=== PATIENT | female | born 1990 | race Caucasian/White ===

== ENCOUNTER 2025-03-09 09:17 | Outpatient (CLI) | payer OTHER, SELFPAY ==
--- OUTSIDE RECORDS SUMMARY | 2025-03-09 09:37 | XMS_ITS | Encounter Summary ---
Author Organization [facility] Address [address] [place] [address] Phone Care Team Providers Care Lining Stuffer Name Role Phone Esau Morgan MD Primary Care Provider [phone] Agapito Douglas MD Unavailable [phone] Reason for Visit * Reason Comments Abdominal Pain Encounter Details Date Type Department Care Team (Late st Contact Info) Description 03/08/2025 11:01 AM CDT - 03/08/2025 2:59 PM CDT Emergency [facility] Emergency [address] [place] [address] Michi Norman MD [address] [place] [address] Bleeding in early Discharge Disposition: Discharged to home or Selfcare Social History Tobacco Use Types Packs/Day Years Used Date Smoking Tobacco: Former Cigarettes Q uit: 11/30/2011 Smokeless Tobacco: Never Alcohol Use Standard Drinks/Week Comments Yes 0 (1 standard drink = 0.6 oz pur e alcohol) once and awhile [facility] Utilities Answer Date Recorded In the past 12 months has th e electric, gas, oil, or water company threatened to shut off services in your home? No 12/15/2024 Social Connection and Isolat ion Panel [NHANES] Answer Date Recorded In a typical week, how many times do you talk on the phone with family, friends, or neighbors? More than three times a week 12/15/2024 How often do you get togethe r with friends or relatives? Once a week 12/15/2024 Attends Mormonism Services Not on file 12/15 Active Member of Clubs or Organizations Not on f ile 12/15/2024 Attends Club or Organization Meetings Not on gill e 12/15/2024 Marital Status Not on file 12/15/2024 AUDIT-C Answer Date Recorded Q1: How often do you have a drink containing alc ohol? Monthly or less 12/15/2024 Q2: How many drinks containi ng alcohol do you have on a typical day when you are drinking? 5 or 6 12/15/2024 Q3: How often do you have si x or more drinks on one occasion? Monthly 12/15/2024 Overall Financial Resource Strain (CARDIA) Answe r Date Recorded How hard is it for you to pa y for the very basics like food, housing, medical care, and heating? Not hard at all 12/15/2024 PHQ-2 Answer Date Recorded Total Score - Questions 1-9 0 11/30 [facility] - Occupational Stress Questionnaire Answer Date Recorded Do you feel stress - tense, restless, nervous, or anxious, or unable to sleep at night because your mind is troubled all the time - these days? Very much 12/15/2024 Exercise Vital Sign Answer Date Recorde d On average, how many days pe r week do you engage in moderate to strenuous exercise (like a brisk walk)? 4 days 12/15/2024 On average, how many minutes do you engage in exercise at this level? 60 min 12/15/2024 Hunger Vital Sign Answer Date Recorded Within the past 12 months, y ou worried that your food would run out before you got the money to buy more. Never true 12/15/19 25 Within the past 12 months, t he food you bought just didn't last and you didn't have money to get more. Never true 12/15/2024 PRAPARE - Transportation Answer Date Re corded In the past 12 months, has l ack of transportation kept you from medical appointments or from getting medications? No 11/30 In the past 12 months, has l ack of transportation kept you from meetings, work, or from getting things needed for daily living? No 12/15/2024 Housing Stability Vital Sign Answer Bradley e Recorded In the last 12 months, was t here a time when you were not able to pay the mortgage or rent on time? No 12/15/2024 In the past 12 months, how m any times have you moved where you were living? 0 12/15/2024 At any time in the past 12 m [facility], were you homeless or living in a fdc (including now)? No 12/15/2024 Education Answer Date Recorded What is the highest level of school you have completed or the highest degree you have received? Associate degree: occupational, technical, or vocational program 07/28/2023 Sexually Active Control Partners Comments Yes I.U.D. Male Estimated Date of Delivery Comme nts Yes 11/17/2025 Sex and Gender Information Value Date Recorded Sex Assigned at Not on file Legal Sex Female 9:43 PM CDT Gender Identity Not on file Sexual Orientation Not on file documented as of this encounter Last Filed Vital Signs Vital Sign Reading Time Taken Comments Blood Pressure 123/57 03/08/2025 11:10 AM CDT Pulse 81 03/08/2025 11:10 AM CDT Temperature 36.8 C (98.2 F) 03/08/2025 11:10 AM CDT Respiratory Rate 16 03/08/2025 11:10 AM CDT Oxygen Saturation 100% 03/08/2025 11:10 AM CDT Inhaled Oxygen Concentration - - Weight 68.5 kg (151 lb) 03/08/2025 11:10 AM CDT Height 157.5 cm (5' 2 ) 03/08/2025 11:10 AM CDT Body Mass Index 27.62 03/08/2025 11:10 AM CDT documented in this encounter Discharge Instructions * Discharge Instructions* Michi Norman MD - 03/08/2025 2:40 PM CDT As we discussed, your ultrasound did not reveal an obvious . While this could be consistent with a very early , it is possible that you may have had a miscarriage or that the is not in the normal location. It is extremely important that you are followed very closely. Youwill need to be rechecked in the 48 hours with repeat blood work so that the trend of your hormone can be followed. This can be done in your SUPERVISOR GLUING's office, our on-call SUPERVISOR GLUING's office if available (information is included in this paperwork), or by returning to this emergency department in 48 hours. It is very important that you follow-up as failure to diagnose a that is in the wrong location (ectopic ) can be deadly. Please also follow-up with your primary doctor within the next 3 days. Please come back immediately if you have worsening bleeding, lightheadedness, severe abdominal or pelvic pain, fever, weakness, or anything else concerning to you. documented in this encounter Medications at Time of Discharge buPROPion (WELLBUTRIN) 150 MG XL tabletIndications :Anxiety Take 1 Tablet by mouth every morning. 90 Tablet 03/06/2025 documented as of this encounter ED Notes * Emmy Shoemaker RN - 03/08/2025 2:56 PM CDT Patient discharged. Discharge instructions and patient educational material reviewed with patient; questions and concerns addressed; patient verbalizes understanding, using teach back. Patient was given 0 prescriptions. Patient discharged per ambulatory mode with self as responsible constitution party. SL D/C'ed with Ad cath intact. Pt declined discharge vital. * Emmy Shoemaker RN - 03/08/2025 2:45 PM CDT Provider at bedside to evaluate pt. * Emmy Shoemaker RN - 03/08/2025 2:30 PM CDT Patient is resting in room with call light at bedside. Patient informed about wait time and verbalizes understanding. Patient denies needs at this time and verbalizes understanding that RN will complete hourly rounding. * Emmy Shoemaker RN - 03/08/2025 1:30 PM CDT Pt resting on stretcher and verbalizes understanding that we are waiting on her US to result. Pt requesting water, but explained that US results must be obtained first. Pt verbalizes understanding. * Emmy Shoemaker RN - 03/08/2025 12:45 PM CDT Pt in US. * Emmy Shoemaker RN - 03/08/2025 11:45 AM CDT IV access established with 20G in the left AC. Urine sample collected. Pt resting on stretcher at this time. No distress noted and call light within reach. * Michi Norman MD - 03/08/2025 11:19 AM CDT Chief Complaint Patient presents with Abdominal Pain This is a 34-year-old female, , currently with a LMP of approximately 1 month ago, comes in due to pain in the context of her . Patient states that she is coming in with left lower quadrant abdominal pain. States that she has had this pain intermittently for the past several months. She had a CT of the beginning of this year which was unremarkable. States that she has been keeping an eye on it with her primary doctor. She recently had a positive test and her paingot worse so she came in to be evaluated out of concern for possible ectopic . She denies any nausea or vomiting. No fevers or chills. No blood in her stool. No vaginal bleeding. She denies any issues with her previous or delivery. Abdominal Pain No current facility-administered medications for this encounter. Current Outpatient Medications Medication Sig Dispense Refill buPROPion (WELLBUTRIN) 150 MG XL tablet Take 1 Tablet by mouth every morning. 90 Tablet 0 No Known Allergies No past medical history on file. Past Surgical History: Procedure Laterality Date APPENDECTOMY LYMPHADENECTOMY 1992 Social History Socioeconomic History Marital status: Spouse name: Not on file Number of children: Not on file Years of education: Not on file Highest education level: Associate degree: occupational, technical, or vocational program Occupational History Not on file Tobacco Use Smoking status: Former Current packs/day: 0.00 Types: Cigarettes Quit date: 11/30/2011 Years since quittin.2 Smokeless tobacco: Never Vaping Use Vaping status: Never Used Substance and Sexual Activity Alcohol use: Yes Comment: once and awhile Drug use: No Sexual activity: Yes Partners: Male control/protection: I.U.D. Other Topics Concern Not on file Social History Narrative Not on file Social Drivers of Health Financial Resource Needs: Low Risk (12/15/2024) Overall Financial Resource Strain (CARDIA) Difficulty of Paying Living Expenses: Not hard at all Food Insecurity Needs: No Food Insecurity (12/15/2024) Hunger Vital Sign Worried About Running Out of Food in the Last Year: Never true Ran Out of Food in the Last Year: Never true Transportation Needs: No Transportation Needs (12/15/2024) PRAPARE - Transportation Lack of Transportation (Medical): No Lack of Transportation (Non-Medical): No Physical Activity: Sufficiently Active (12/15/2024) Exercise Vital Sign Days of Exercise per Week: 4 days Minutes of Exercise per Session: 60 min Stress: Stress Concern Present (12/15/2024) [facility] - Occupational Stress Questionnaire Feeling of Stress : Very much Social Integration: Unknown (12/15/2024) Social Connection and Isolation Panel [NHANES] Frequency of Communication with Friends and Family: More than three times a week Frequency of Social Gatherings with Friends and Family: Once a week Attends Mormonism Services: Not on file Active Member of Clubs or Organizations: Not on file Attends Club or Organization Meetings: Not on file Marital Status: Not on file Personal Safety: Low Risk (03/08/2025) Personal Safety Feels Unsafe at Home or Work/School: no Feels Threatened by Someone: no Does Anyone Try to Keep You From Having Contact with Others or Doing Things Outside Your Home?: no Physical Signs of Abuse Present: no Housing Stability: Low Risk (12/15/2024) Housing Stability Vital Sign Unable to Pay for Housing in the Last Year: No Number of Times Moved in the Last Year: 0 Homeless in the Last Year: No BP 123/57 Pulse 81 Temp 98.2 ??F (36.8 ??C) (Tympanic) Resp 16 Ht 5' 2 (1.575 m) Wt 151 lb (68.5 kg) LMP 02/09/2025 (Exact Date) SpO2 100% BMI 27.62 kg/m?? Review of Systems Physical Exam Vitals and nursing note reviewed. Constitutional: Comments: Well-appearing young female in no acute distress. HENT: Head: Normocephalic and atraumatic. Mouth/Throat: Mouth: Mucous membranes are moist. Pharynx: Oropharynx is clear. Eyes: Extraocular Movements: Extraocular movements intact. Pupils: Pupils are equal, round, and reactive to light. Cardiovascular: Rate and Rhythm: Normal rate and regular rhythm. Pulmonary: Effort: Pulmonary effort is normal. Breath sounds: Normal breath sounds. Abdominal: General: Abdomen is flat. Bowel sounds are normal. There is no distension. Palpations: Abdomen is soft. Tenderness: There is no abdominal tenderness. Negative signs include Thao's sign and McBurney's sign. Hernia: No hernia is present. Skin: General: Skin is warm and dry. Capillary Refill: Capillary refill takes less than 2 seconds. Neurological: General: No focal deficit present. Mental Status: She is oriented to person, place, and time. Cranial Nerves: No cranial nerve deficit. Motor: No weakness. Psychiatric: Mood and Affect: Mood normal. Procedures Recent Results (from the past 24 hours) POCT Urine HCG () Collection Time: 03/08/25 11:43 AM Result Value Ref Range POC URINE Positive POC URINE CONTROL [facility] ABO & RH TYPING Collection Time: 03/08/25 11:45 AM Result Value Ref Range ABO TYPING A RH Positive CBC with Auto Differential Collection Time: 03/08/25 11:45 AM Result Value Ref Range WBC 7.56 4.00 - 12.00 10(3)/mcL RBC 4.15 3.80 - 5.30 10(6)/mcL HEMOGLOBIN (HGB) 12.5 12.0 - 15.8 g/dL HEMATOCRIT (HCT) 37.7 36.0 - 47.0 % MCV 90.8 82.0 - 96.0 fL MCH 30.1 26.0 - 34.0 pg MCHC 33.2 31.0 - 36.0 g/dL PLATELET COUNT 296 140 - 440 10(3)/mcL RDW 13.0 11.8 - 15.5 % MPV 10.5 9.7 - 12.4 fL NEUTROPHILS 58.9 47.0 - 73.0 % LYMPHOCYTES 29.4 18.0 - 42.0 % MONOCYTES 9.7 4.0 - 12.0 % EOSINOPHILS 1.2 0.0 - 5.0 % BASOPHILS 0.8 0.0 - 1.0 % ABSOLUTE NEUTROPHILS 4.46 1.60 - 7.70 10(3)/mcL ABSOLUTE LYMPHOCYTES 2.22 1.30 - 3.20 10(3)/mcL ABSOLUTE MONOCYTES 0.73 0.20 - 1.00 10(3)/mcL ABSOLUTE EOSINOPHIL 0.09 0.00 - 0.40 10(3)/mcL ABSOLUTE BASOPHILS 0.06 0.00 - 0.10 10(3)/mcL NRBC PER 100 WBC 0 CMP Collection Time: 03/08/25 11:46 AM Result Value Ref Range SODIUM 141 136 - 145 mmol/L POTASSIUM 3.7 3.5 - 5.1 mmol/L CHLORIDE 110 (H) 98 - 107 mmol/L CO2, VENOUS 24 22 - 30 mmol/L ANION GAP 10.7 <18.0 mmol/L GLUCOSE 93 70 - 99 mg/dL BUN 10 5 - 18 mg/dL CREATININE, BLOOD 1.16 (H) 0.60 - 1.00 mg/dL BUN/CREATININE RATIO 9 (L) 12 - 20 ratio TOTAL PROTEIN 7.3 6.0 - 8.0 g/dL ALBUMIN 4.2 3.5 - 5.0 g/dL A/G RATIO 1.4 1.0 - 2.2 CALCIUM 9.3 8.7 - 10.5 mg/dL T BILI 0.4 0.2 - 1.2 mg/dL SGOT (AST) 17 <43 U/L SGPT (ALT) 17 <56 U/L ALKALINE PHOSPHATASE 57 40 - 150 U/L GFR, ESTIMATED >60 >=60 GFR, EST. >60 >=60 GFR, EST. NONAFRICAN 53 (L) >=60 HCG Beta Quant Collection Time: 03/08/25 11:46 AM Result Value Ref Range HCG BETA SUBUNIT, QUANT 514.95 (H) 0.00 - 5.00 mIU/mL Urinalysis w/ Reflex Collection Time: 03/08/25 11:47 AM Result Value Ref Range SPECIFIC GRAVITY 1.015 1.003 - 1.030 URINE PH 8.0 5.0 - 9.0 WBC ESTERASE Negative Negative NITRITE Negative Negative PROTEIN, RANDOM URINE Negative Negative URINE GLUCOSE, QUAL Negative Negative URINE KETONES Negative Negative UROBILINOGEN Normal Normal mg/dL URINE BLOOD Negative Negative nay/ul URINALYSIS COLOR Yellow URINALYSIS CLARITY Slightly Cloudy Imaging Results US 1ST PREG UTERUS COMP TRIMESTER W/ TRANSVAG (Final result) Result time 03/08/25 14:33:37 Procedure changed from US UTERUS, LIMITED/SINGLE Final result by Vinny Orlando MD (03/08/25 14:33:37) Impression: IMPRESSION: No evidence of intrauterine . Findings could be due to spontaneous , or possibly early IUP. No definite evidence of ectopic were seen but a follow-up study in 1 week is recommended. Narrative: EXAM DESCRIPTION: US 1ST PREG UTERUS COMP TRIMESTER W/ TRANSVAG REASON FOR STUDY: pain Beta-hC TECHNIQUE: Transabdominal and transvaginal images acquired of the pelvis. COMPARISON: None FINDINGS: Clinical gestational age: Not applicable Clinical estimated Due Date: Not applicable Intrauterine gestational sac: Absent Yolk sac: Absent Subchorionic bleed: No Placenta: Not identified Mean sac diameter: Not applicable cm [place]-rump length: Not applicable cm heart rate: Not applicable bpm Gestational age by this ultrasound: Not applicable BONITA by this ultrasound: Not applicable Uterus: The uterus is anteverted , measuring 4.5 x 6.6 x 8.4 cm. Right Ovary/Adnexa: The right ovary measures 3.2 cm. There is documentation of color Doppler flow in the right ovary. The right ovary appears unremarkable. No adnexal mass. Left Ovary/Adnexa: The left ovary measures 3.9 cm. There is documentation of color Doppler flow in the left ovary. A 2.8 cm cyst is seen.. No adnexal mass. Free Fluid: None. Other Findings: None. THIS IS AN ELECTRONICALLY VERIFIED FINAL REPORT 03/08/2025 2:31 PM - Electronically signed by Hubert Orlando M.D. NATASHA: NATASHA Report ID: [id number] Reading Location: [address] UTERUS, LIMITED/SINGLE (Canceled) Medical Decision Making This is a 34-year-old female who has abdominal pain in the setting of an early . Symptoms could be related to a musculoskeletal process such as round ligament and pain, nerve impingement. Ectopic is considered review of in her early although the previous existence of this pain suggests otherwise. She does not have any infectious symptoms or bowel changes to suggest diverticulitis anterior previous CT was unremarkable. She has no tenderness to suggest acute abdomen at this time. We will check basic labs to assess for any derangements as well as a hCG level. We willplan to undergo an ultrasound to exclude ectopic , although patient was cautioned that theearly status of the could lead to an ultrasound that does not fully exclude ectopic. Clinical Impression 1. Bleeding in early Disposition: Discharge ED Course as of 03/08/25 1447 Wed Mar 08, 2025 1439 Patient's labs are grossly unremarkable. Her blood type is A positive. Her urinalysis shows noinfection. Her ultrasound does not show any obvious signs of IUP or other significant pathology. I suspect that this is likely due to an early , however an ectopic is not fully excluded. Miscarriage felt to be less likely given lack of bleeding. Patient was advised that ectopic is not ruled out and recommended close follow up with her OBGYN within the next week for serial labs and repeatultrasound. She was advised that she should return immediately if she has worsening pain, persistent vaginal bleeding, inability to obtain appropriate follow up, or anything else that concerns her. [GS] ED Course User Index [GS] Michi Norman MD * Hayley Henry RN - 03/08/2025 11:12 AM CDT Patient to ED with complaints of left lower quadrant abdominal pain for three days. She reports similar pain intermittently for the last few months. Patient found out she was last week. LMP was 02/09/25. . Patient denies any vaginal bleeding. documented in this encounter Plan of Treatment Upcoming Encounters Date Type Department Care Team (Late st Contact Info) Description 04/20/2025 11:30 AM CDT Office Visit [facility] [address] [place] [phone] Jacqueline Saucedo, DATA TYPIST, DESIGN SPECIALIST [address] [id number] documented as of this encounter Procedures Procedure Name Priority Date/Time Associated Diagnosis Comments US 1ST PREG UTERUS COMP TRIMESTER W/ TRANSVAG Stat with Interpretation 03/08/2025 1:04 PM CDT URINALYSIS REFLEX IF INDICATED BY ABNORMAL RESULTS STAT 03/08/2025 11:47 AM CDT EXTRA TUBES STAT 03/08/2025 11:46 AM CDT GOLD TOP TUBE STAT 03/08/2025 11:46 AM CDT BLUE TOP TUBE STAT 03/08/2025 11:46 AM CDT HCG BETA SUBUNIT SERUM QUANT STAT 03/08/2025 11:46 AM CDT CMP (COMPREHENSIVE METABOLIC PANEL) STAT 03/08/2025 11:46 AM CDT CBC WITH AUTO DIFFERENTIAL STAT 03/08/2025 11:45 AM CDT COMPLETE BLOOD COUNT (CBC) WITH DIFF STAT 03/08/2025 11:45 AM CDT ABO & RH TYPING STAT 03/08/2025 11:45 AM CDT POCT URINE HCG () STAT 03/08/2025 11:43 AM CDT documented in this encounter Results * US 1ST PREG UTERUS COMP TRIMESTER W/ TRANSVAG (03/08/2025 1:04 PM CDT) Anatomical Region Laterality Modality OB N/A Ultrasound 03/08/2025 2:31 PM CDT Impressions 03/08/2025 2:33 PM CDT IMPRESSION: No evidence of intrauterine . Findings could be due to spontaneous , or possibly early IUP. No definite evidence of ectopic were seen but a follow-up study in 1 week is recommended. Narrative 03/08/2025 2:33 PM CDT EXAM DESCRIPTION: US 1ST PREG UTERUS COMP TRIMESTER W/ TRANSVAG REASON FOR STUDY: pain Beta-hC TECHNIQUE: Transabdominal and transvaginal images acquired of the pelvis. COMPARISON: None FINDINGS: Clinical gestational age: Not applicable Clinical estimated Due Date: Not applicable Intrauterine gestational sac: Absent Yolk sac: Absent Subchorionic bleed: No Placenta: Not identified Mean sac diameter: Not applicable cm [place]-rump length: Not applicable cm heart rate: Not applicable bpm Gestational age by this ultrasound: Not applicable BONITA by this ultrasound: Not applicable Uterus: The uterus is anteverted , measuring 4.5 x 6.6 x 8.4 cm. Right Ovary/Adnexa: The right ovary measures 3.2 cm. There is documentation of color Doppler flow in the right ovary. The right ovary appears unremarkable. No adnexal mass. Left Ovary/Adnexa: The left ovary measures 3.9 cm. There is documentation of color Doppler flow in the left ovary. A 2.8 cm cyst is seen.. No adnexal mass. Free Fluid: None. Other Findings: None. THIS IS AN ELECTRONICALLY VERIFIED FINAL REPORT 03/08/2025 2:31 PM - Electronically signed by Hubert Orlando M.D. NATASHA: NATASHA Report ID: [id number] Reading Location: [id number] Procedure Note Vinny Orlando MD - 03/08/2025 EXAM DESCRIPTION: US 1ST PREG UTERUS COMP TRIMESTER W/ TRANSVAG REASON FOR STUDY: pain Beta-hC TECHNIQUE: Transabdominal and transvaginal images acquired of the pelvis. COMPARISON: None FINDINGS: Clinical gestational age: Not applicable Clinical estimated Due Date: Not applicable Intrauterine gestational sac: Absent Yolk sac: Absent Subchorionic bleed: No Placenta: Not identified Mean sac diameter: Not applicable cm [place]-rump length: Not applicable cm heart rate: Not applicable bpm Gestational age by this ultrasound: Not applicable BONITA by this ultrasound: Not applicable Uterus: The uterus is anteverted , measuring 4.5 x 6.6 x 8.4 cm. Right Ovary/Adnexa: The right ovary measures 3.2 cm. There is documentation of color Doppler flow in the right ovary. The right ovary appears unremarkable. No adnexal mass. Left Ovary/Adnexa: The left ovary measures 3.9 cm. There is documentation of color Doppler flow in the left ovary. A 2.8 cm cyst is seen.. No adnexal mass. Free Fluid: None. Other Findings: None. THIS IS AN ELECTRONICALLY VERIFIED FINAL REPORT 03/08/2025 2:31 PM - Electronically signed by Hubert Orlando M.D. NATASHA: NATASHA Report ID: [id number] Reading Location: [id number] IMPRESSION: No evidence of intrauterine . Findings could be due to spontaneous , or possibly early IUP. No definite evidence of ectopic were seen but a follow-up study in 1 week is recommended. us Michi Norman MD IMG US OB Final Res ult * Urinalysis w/ Reflex (03/08/2025 11:47 AM CDT) SPECIFIC GRAVITY 1.015 1.003 - 1.030 03/08/2025 12:21 PM CDT [facility] URINE PH 8.0 5.0 - 9.0 03/08/2025 12:21 PM CDT [facility] WBC ESTERASE Negative Negative 03/08/2025 12:21 PM CDT [facility] NITRITE Negative Negative 03/08/2025 12:21 PM CDT [facility] PROTEIN, RANDOM URINE Negative Negative 03/08/2025 12:21 PM CDT [facility] URINE GLUCOSE, QUAL Negative Negative 03/08/2025 12:21 PM CDT [facility] URINE KETONES Negative Negative 03/08/2025 12:21 PM CDT [facility] UROBILINOGEN Normal Normal mg/dL 03/08/2025 12:21 PM CDT [facility] URINE BLOOD Negative Negative nay/ul 03/08/2025 12:21 PM CDT [facility] URINALYSIS COLOR Yellow 03/08/20 12:21 PM CDT [facility] URINALYSIS CLARITY Slightly Cloudy 03/08/2025 12:21 PM CDT [facility] Urine URINE SPECIMEN / Unknown Non-Phlebotomy Collection / Unknown 03/08/2025 11:47 AM CDT 03/08/2025 11:59 AM CDT us Michi Norman MD URINE ORDERABLES Final Re sult [facility] [address] [place] [address] * Gold Top Tube (03/08/2025 11:46 AM CDT) Blood No Phlebotomy Charged / Unknown 03/08/2025 11:46 AM CDT 03/08/2025 11:46 AM CDT us Michi Norman MD CHEMISTRY ORDERABLES [place] l Result [facility] [address] [place] [address] * Blue Top Tube (03/08/2025 11:46 AM CDT) Blood No Phlebotomy Charged / Unknown 03/08/2025 11:46 AM CDT 03/08/2025 11:46 AM CDT us Michi Norman MD HEMATOLOGY ORDERABLES Fin al Result [facility] [address] [place] [address] * (ABNORMAL) HCG Beta Quant (03/08/2025 11:46 AM CDT) HCG BETA SUBUNIT, QUANT 514.95(H) 0.00 - 5.00 mIU/mL 03/08/2025 12:10 PM CDT [facility] Blood Venipuncture / Unknown 03/08/2025 11:46 AM CDT 03/08/2025 11:46 AM CDT Narrative [facility] - 03/08/2025 12:10 PM CDT HCG levels should be interpreted with consideration given to the patient's clinical condition. No currently available hCG test is approved by the FDA for use as a tumor marker. hCG results <5 mIU/mL are considered negative. Weeks post LMP hCG range (mIU/mL) 1 - 10 202 - 231,000 11 - 15 22,536 - 234,990 16 - 22 8,007 - 50,064 23 - 40 1,600 - 49,413 The concentration of hCG in maternal serum rises rapidly in early , hCG levels less than 25 mIU/mL do not exclude . A further sample should be tested after 48 hours if is suspected. Heterophilic antibodies present in the serum of some patients may cause a false positive result in the assay. Before making a diagnosis of malignancy based on elevated hCG, confirm results with a urine hCG. us Michi Norman MD CHEMISTRY ORDERABLES [place] l Result [facility] [address] [place] [address] * (ABNORMAL) CMP (03/08/2025 11:46 AM CDT) SODIUM 141 136 - 145 mmol/L 03/08/2025 12:06 PM CDT [facility] POTASSIUM 3.7 3.5 - 5.1 mmol/L 03/08/2025 12:06 PM T [facility] CHLORIDE 110(H) 98 - 107 mmol/L 03/08/2025 12:06 PM T [facility] CO2, VENOUS 24 22 - 30 mmol/L 03/08/2025 12:06 PM CDT [facility] ANION GAP 10.7 <18.0 mmol/L 03/08/2025 12:06 PM T [facility] GLUCOSE 93 70 - 99 mg/dL 03/08/2025 12:06 PM T [facility] BUN 10 5 - 18 mg/dL 03/08/2025 12:06 PM [facility] CREATININE, BLOOD 1.16(H) 0.60 - 1.00 mg/dL 03/08/2025 12:06 PM T [facility] BUN/CREATININE RATIO 9(L) 12 - 20 ratio 03/08/2025 12:06 PM [facility] TOTAL PROTEIN 7.3 6.0 - 8.0 g/dL 03/08/2025 12:06 PM [facility] ALBUMIN 4.2 3.5 - 5.0 g/dL 03/08/2025 12:06 PM [facility] A/G RATIO 1.4 1.0 - 2.2 03/08/2025 12:06 PM T [facility] CALCIUM 9.3 8.7 - 10.5 mg/dL 03/08/2025 12:06 PM [facility] T BILI 0.4 0.2 - 1.2 mg/dL 03/08/2025 12:06 PM T [facility] SGOT (AST) 17 <43 U/L 03/08/2025 12:06 PM T [facility] SGPT (ALT) 17 <56 U/L 03/08/2025 12:06 PM CDT [facility] ALKALINE PHOSPHATASE 57 40 - 150 U/L 03/08/2025 12:06 PM CDT [facility] GFR, ESTIMATED >60 >=60 03/08/2025 12:06 PM CDT [facility] Comment: Creatinine Clearance is the preferred criteria for selecting drug dose adjustments in renally impaired patients. The GFR is provided as additional pertinent clinical information. GFR is reported in mL/min/1.73 sq m. Calculation based on the Chronic Kidney Disease Epidemiology Collaboration (CKD- EPI) equation refit without adjustment for race. GFR, EST. >60 >=60 025 12:06 PM CDT [facility] GFR, EST. NONAFRICAN 53(L) >=60 03/08/2025 12:06 PM CDT [facility] Blood Venipuncture / Unknown 03/08/2025 11:46 AM CDT 03/08/2025 11:46 AM CDT us Michi Norman MD CHEMISTRY ORDERABLES [place] l Result [facility] [address] [place] [address] * CBC with Auto Differential (03/08/2025 11:45 AM CDT) WBC 7.56 4.00 - 12.00 10(3)/mcL 03/08/2025 11:49 AM CDT [facility] RBC 4.15 3.80 - 5.30 10(6)/mcL 03/08/2025 11:49 AM CDT [facility] HEMOGLOBIN (HGB) 12.5 12.0 - 15.8 g/dL 03/08/2025 11:49 AM CDT [facility] HEMATOCRIT (HCT) 37.7 36.0 - 47.0 % 03/08/2025 11:49 AM CDT [facility] MCV 90.8 82.0 - 96.0 fL 03/08/2025 11:49 AM CDT [facility] MCH 30.1 26.0 - 34.0 pg 03/08/2025 11:49 AM CDT [facility] MCHC 33.2 31.0 - 36.0 g/dL 03/08/2025 11:49 AM CDT [facility] PLATELET COUNT 296 140 - 440 10(3)/mcL 03/08/2025 11:49 AM CDT [facility] RDW 13.0 11.8 - 15.5 % 03/08/2025 11:49 AM CDT [facility] MPV 10.5 9.7 - 12.4 fL 03/08/2025 11:49 AM CDT [facility] NEUTROPHILS 58.9 47.0 - 73.0 % 03/08/2025 11:49 AM CDT [facility] LYMPHOCYTES 29.4 18.0 - 42.0 % 03/08/2025 11:49 AM CDT [facility] MONOCYTES 9.7 4.0 - 12.0 % 03/08/2025 11:49 AM CDT [facility] EOSINOPHILS 1.2 0.0 - 5.0 % 03/08/2025 11:49 AM CDT [facility] BASOPHILS 0.8 0.0 - 1.0 % 03/08/2025 11:49 AM CDT [facility] ABSOLUTE NEUTROPHILS 4.46 1.60 - 7.70 10(3)/mcL 03/08/2025 11:49 AM CDT [facility] ABSOLUTE LYMPHOCYTES 2.22 1.30 - 3.20 10(3)/mcL 03/08/2025 11:49 AM CDT [facility] ABSOLUTE MONOCYTES 0.73 0.20 - 1.00 10(3)/mcL 03/08/2025 11:49 AM CDT [facility] ABSOLUTE EOSINOPHIL 0.09 0.00 - 0.40 10(3)/mcL 03/08/2025 11:49 AM CDT [facility] ABSOLUTE BASOPHILS 0.06 0.00 - 0.10 10(3)/[facility] 03/08/2025 11:49 AM CDT [facility] NRBC PER 100 WBC 0 03/08/20 11:49 AM CDT [facility] Blood Venipuncture / Unknown 03/08/2025 11:45 AM CDT 03/08/2025 11:45 AM CDT Michi Norman MD HEMATOLOGY ORDERABLES Fin al Result [facility] [address] [place] [address] * ABO & RH TYPING (03/08/2025 11:45 AM CDT) ABO TYPING A 03/08/2025 1:15 PM CDT [facility] RH Positive 03/08/2025 1:15 PM CDT [facility] Blood Venipuncture / Unknown 03/08/2025 11:45 AM CDT 03/08/2025 11:45 AM CDT us Michi Norman MD BLOOD BANK ORDERABLES Fin al Result Performing Organization Address City/[facility]/ZIP Co de Phone Number [facility] [place] [address] * POCT Urine HCG () (03/08/2025 11:43 AM CDT) POC URINE Positive POC URINE CONTROL [facility] Urine 03/08/2025 11:4 3 AM CDT Michi Norman MD POINT OF CARE TESTING (YOLANDA MUÑOZ) Final Result documented in this encounter Visit Diagnoses Diagnosis Bleeding in early - Primary Unspecified hemorrhage in early , unspecified as to episode of care documented in this encounter Additional Health Concerns Assessment Noted Time PHQ-9 Depression Total Score: 0 12/15/19 25 8:24 AM 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
--- OUTSIDE RECORDS SUMMARY | 2025-03-09 09:37 | XMS_ITS | Data Portability ---
Author Organization [place] [facility] [employer], Main Office Address [address] [place] [address] Care Team Providers Care Electronic Installer Name Role Phone MASHA TORRES Primary Care Provider [phone] MASHA TORRES Referring Provider Assessment Encounter Date Assessment Date Assessment LastModified by Organization Details LastModified Time 10/30/2023 10/30/2023 The patient has a gastrocnemius strain right calf. We talked about treatment options for this she is going to do some gentle stretching exercises she can use an Andrew wrap for support elevate the leg for swelling as necessary and use ibuprofen up to 800 mg t.i.d. with food. 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 where its more heavy physical things will be dangerous for her to be climbing ladders etc. at this point and also slow down her recovery. For now she will stay out of running, sports anything to Physical she will rest it give it time to heal up. Slow gradual improvement would be expected. I will see her back in a couple of weeks for her next recheck see how she is doing return her to work full duty when she is safe to climb ladders. She voiced understanding agrees above plan she will call for any further problems difficulties or questions. Not available 10/30/2023 12:36:40 11/13/2023 11/13/2023 Patient had a right gastrocnemius strain she is now about 3 weeks status post injury. I do not think she is safe to climb ladders or go back to work quite yet as she cannot do a single leg heel rise without significant discomfort. She is going to continue to work on stretching we talked about some gentle range of motion and gentle strengthening exercises as well. She is advised not to do anything heavy repetitive no running or jumping no sudden movements and no ladder climbing for now. We will keep her on light duty at work. I will see her back in 3 weeks for her next recheck hopefully she will be feeling much better by then if so she can return to work as tolerated. She voiced understanding agrees above plan she will call for any further problems difficulties or questions. Not available 11/13/2023 12:19:52 12/02/2023 12/02/2023 Patient has a resolved healed of right gastrocnemius strain. She has no pain to palpation exam or daily activities. Her exam today was completely benign she has excellent strength she can return to work full duty beginning next week she would like to return but if she starts to have discomfort show let us know and back off of her activities a bit. I have advised her to start slowly work her way back into normal activities she voiced understanding agrees above plan for now she is dismissed she will call for any further problems difficulties or questions. Not available 12/02/2023 12:15:25 Plan of Treatment Reminders Order Date Submit Date Provider Last Modified By Organization Details Last Modified Time Details Appointments None recorde d. Lab None recorde d. Referral None recorde d. Procedures None recorde d. Surgeries None recorde d. Imaging XR, ankle 023 10/30/20 23 [email or web address] [facility], [address], [place], [address], 12:37:55 Medication Orders None recorde d. Patient TargetsNo targets recorded. Patient InstructionsNo instructions recorded. Reason for Referral None Reported. Results Created Date Observation Date Name Description Value Unit Range Abnormal Flag Note LastModifiedBy Organization Detail LastModifiedTime 07/11/20 21 07/11/2021 pregn ken test, urine HCG negati ve Not Available [facility] [address], [place], [address], 07/11/2021 14:06:37 05/29/20 21 05/31/2021 IGP, APTIM A HPV diagnosis: commen t NEGAT PATY FOR INTRA EPITH ELIAL LESIO N OR MALREECE JIMENEZ . Not Available [facility] [address] [place], [address], 05/31/2021 08:19:06 05/29/20 21 05/31/2021 IGP, APTIM A HPV specimen adequacy: eugene t Satis facto ry for evalu ation . Endoc ervic al and/o r squam ous metap lasti c cells (endo cervi kassi compo nent) are prese nt. Not Available [facility] [address] [place], [address], 05/31/2021 08:19:06 05/29/20 21 05/31/2021 IGP, APTIM A HPV clinician provided ICD10: eugene poe Z01.4 19 Not Available [facility] [address] [place], [address], 05/31/2021 08:19:06 05/29/20 21 05/31/2021 IGP, APTIM A HPV performed by: eugene hamlin, [employer] glory t (ASCP ) Not Available [facility] [address] [place], [address], 05/31/2021 08:19:06 05/29/20 21 05/31/2021 IGP, APTIM A HPV . . Not Available [facility] [address] [place], [address], 05/31/2021 08:19:06 05/29/20 21 05/31/2021 IGP, APTIM A HPV note: eugene poe The Pap smear is a scree brennen test desig christiana to aid in the detec tion of toni ligna nt and malig nant condi tions of the uteri ne cervi x. It is not a diagn ostic proce dure and shoul d not be used as the sole means of detec ting cervi kassi cance r. Both false -posi tive and false -nega tive repor ts do occur . Not Available [facility] [address], [place], [address], 05/31/2021 08:19:06 05/29/20 21 05/31/2021 IGP, APTIM A HPV test methodology: commen t This liqui d based ThinP rep(R ) pap test was angelique villeda with the use of an image guide ashish garcía. Not Available [address], [address], 05/31/2021 08:19:06 05/29/20 21 05/31/2021 IGP, APTIM A HPV HPV aptima negati ve negati ve This nucle ic acid ampli ficat ion test detec ts fourt een high- risk HPV types (16,1 8,31, 33,35 ,39,4 5,51, 52,56 ,58,5 9,66, 68) witho ut diffe renti ation . Not Available [address], [address], 05/31/2021 08:19:06 07/11/20 21 07/12/2021 CT, NG, TRICH VAG BY ZAYRA chlamydia by ZAYRA negati ve negati ve Not Available [address], [address], 07/13/2021 06:12:28 07/11/20 21 07/12/2021 CT, NG, TRICH VAG BY ZAYRA gonococcus by ZAYRA negati ve negati ve Not Available [address], [address], 07/13/2021 06:12:28 07/11/2007/12/2021 CT, NG, TRICH VAG BY ZAYRA trich vag by ZAYRA negati ve negati ve Not Available [address] [place], [address], 07/13/2021 06:12:28 06/17/20 21 06/17/2021 , ronnie Vega observ ation record ed. [id number] [facility] ([facility] [address] [place], [address], 01/28/2023 23:10:37 10/30/20 23 XR, ankle No observ ation record ed. [email or web address] [facility] [place] [address], [place], [address], 10/30/2023 12:37:54 Result Notes None recorded. Problems Name Problem SNOMED Code Status Onset Date Resolution Date Notes Provider Name and Address Organization Details Recorded Time Ankle pain 840312636 Active 2022 Iva Toribio null, [employer] 10:35:17 Ankle pain 866224750 Active 2022 Iva Toribio null, [employer] 3 10:36:49 Right gastrocnemi us strain 8419225032294 9109 Active 2022 JEIMY Moise [address] [facility], [facility] [address], [place], [address], [employer] 3 12:36:58 Ankle joint pain 914431150 Active 2023 PILAR Enamorado null, [employer] 4 11:51:32 Problem Notes None recorded. Procedures Surgical History Date Name Laterality Status Provider Name and Address Organization Details Recorded Time 07/11/20 21 [employer] Procedure completed Not Available [facility] 2022 23:05:09 05/29/20 21 Date of Last Pap Smear completed Not Available [facility] 01/28/2023 23:05:07 Appendectomy completed Not Available [facility] 01/28/2023 23:05:09 Imaging Results Imaging Date Name Status LastModified by Organiz ation Details LastModified Time 06/17/2021 US, pelvis completed [id number] [facility] ([facility] [address] [place], [address], 01/28/2023 23:10:37 10/30/2023 XR, ankle completed [email or web address] [facility] [place] [address] [facility] [address], [place], [address], 10/30/2023 12:37:54 Procedure Notes None recorded. Medical Equipment None Reported. Allergies No known drug allergies Medications Name Sig Start Date Stop Date Status Note LastModified by Organization Details LastModified Time Mirena 21 mcg/24 hr (up to 8 years) 52 mg intrauterin e device Take 1 device by intrauter ine route. 10/30 completed Not Available Not Available Not Available methocarbam ol 500 mg tablet TAKE 1 TABLET BY MOUTH TWICE A DAY active Not Available Not Available No t Available venlafaxine ER 75 mg capsule,ext ended release 24 hr TAKE 1 CAPSULE BY MOUTH EVERY DAY active Not Available Not Available No t Available azithromyci n 250 mg tablet TAKE 2 TABLETS BY MOUTH TODAY, THEN TAKE 1 TABLET DAILY FOR 4 DAYS active Not Available Not Available No t Available ibuprofen 800 mg tablet TAKE 1 TABLET BY MOUTH THREE TIMES DAILY active Not Available Not Available No t Available citalopram 10 mg tablet TAKE 1 TABLET BY MOUTH EVERY DAY 05/29 completed Not Available Not Available Not Available hydrocodone 5 mg-acetamin ophen 325 mg tablet TAKE 1 TO 2 TABLETS BY MOUTH EVERY 4 HOURS NEEDED FOR PAIN. DO NOT EXCEED 8 TABLETS PER DAY. active Not Available Not Available No t Available metronidazo le 500 mg tablet TAKE 1 TABLET BY MOUTH EVERY 12 HOURS active Not Available Not Available No t Available citalopram 20 mg tablet TAKE 1 TABLET BY MOUTH EVERY DAY 10/30 completed Not Available Not Available Not Available ferrous sulfate 325 mg (65 mg iron) tablet Take 1 tablet every day by oral route. 10/30 completed Not Available Not Available Not Available lidocaine 5 % topical patch PLACE 1 PATCH ON THE SKIN DAILY REMOVE & DISCARD PATCH WITHIN 12 HOURS OR DIRECTED BY MD active Not Available Not Available No t Available naproxen 500 mg tablet TAKE 1 TABLET BY MOUTH TWICE A DAY WITH MEALS active Not Available Not Available No t Available EluRyng 0.12 mg-0.015 mg/24 hr vaginal ring INSERT ONE RING VAGINALLY ONCE A MONTH 10/30 completed Not Available Not Available Not Available Vitals Date Recorded Body mass index (BMI) Body height Body weight Provider Name and Address Organization Details Last Updated DateTime 07/11/2021 29.1 kg/m2 160.02 cm 37875.15 g Not Available [facility] 01/28/2023 23:05:51 Date Recorded Body height Body mass index (BMI) Body weight Provider Name and Address Organization Details Last Updated DateTime 11/13/2023 157.48 cm 30.2 kg/m2 16271.74 g Genevieve Boykineric [facility] [employer] 11/13/2023 11:54:11 Date Recorded Body height Body mass index (BMI) Body weight Provider Name and Address Organization Details Last Updated DateTime 12/02/2023 157.48 cm 31.1 kg/m2 38574.7 g Awilda Maximo [facility] [employer] 12/02/2023 11:50:47 Social History Question Answer Notes LastModified by [facility] Details LastModified Time Tobacco Smoking Status Current Some Day Smoker sometimes when drinking--cb Not Available [facility] 01/28/2023 23:04:42 What Is Your Level Of Alcohol Consumption? Occasional [id number] Information not available 01/28/2023 What Is Your Level Of Caffeine Consumption? Heavy [id number] Information not available 01/28/2023 In The 14 Days Before Symptom Onset, Have You Had Close Contact With A Laboratory-confi rmed COVID-19 While That Case Was Ill? No [id number] Information not available 01/28/2023 In The 14 Days Before Symptom Onset, Have You Had Close Contact With A Person Who Is Under Investigation For COVID-19 While That Person Was Ill? No [id number].[id number] Information not available 01/28/2023 Which Illicit Or Recreational Drugs Have You Used? No [id number] Information not available 01/28/2023 Do You Or Have You Ever Used E-cigarettes Or Vape? Never Used Electronic Cigarettes [id number] Information not available 01/28/2023 Sex: Unknown Functional Status Question Answer Note LastModified by [facility] Details LastModified Time What is your exercise level? Heavy [id number] Information not available 01/28/2023 Mental Status None recorded. Family History Relationship Description Onset Age of this Age Resolved Age Notes LastModified by Organization Details LastModified Time Father Hypertensive disorder [id number] Not available 01/28/2023 23:05:11 Unspecified Relation Heart disease father s side [email or web address] Not available 10/30/2023 10:32:44 Brother Pulmonary embolism [email or web address] Not available 2022 10:33:06 Notes:heart problems on dads side--cb Medical History Condition Response ANEMIA/BLOOD DISORDER Y URINARY/BLADDER/KIDNEY PROBLEMS Y Gynecological History Statement/Question Response Abnormal Pap N Date of LMP 07/10/2021 Date of Last Pap Smear 05/29/2021 Current Control Method IUD Age at Menarche 12 Most Recent Mammogram Breast Problems no Obstetrics History GPAL:G 1 P 1 0 0 1 Type Value Full Term 1 Living 1 Total 1 Past Encounters Encounter ID Performer Location Encounter Start Date Encounter Closed Date Diagnosis/Indication Diagnosis SNOMED-CT Code Diagnosis ICD10 Code Diagnosis Note [id number] _ATHENA_M IGRATION_ DEFAULT_1 _1 , 05/29/2021 00:00:00 05/29/2021 13:44:17 [id number] _ATHENA_M IGRATION_ DEFAULT_1 _1 , 06/17/2021 00:00:00 06/17/2021 14:24:17 [id number] _ATHENA_M IGRATION_ DEFAULT_1 _1 , 07/11/2021 00:00:00 07/11/2021 14:33:30 [id number] JEIMY Moise [facility] [address] [place] [address] 10/30/2023 10:14:34 10/30/2023 12:05:47 Ankle pain 305007889 M25.579 Right barney rocnemius strain 0734308717 1860699 S86.111A [id number] JEIMY Moise [facility] [address] [place] [address] 11/13/2023 11:50:55 11/19/2023 16:34:06 Right gastrocnemius strain 9338765274 2362546 S86.111A Ankle pain 959005438 M25 .958 [id number] JEIMY Moise [facility] [address] [place] [address] 12/02/2023 11:45:33 12/02/2023 12:25:07 Right gastrocnemius strain 3620705233 1241168 S86.111D Ankle joint pain 09 M25.579 Health Concerns Section Related Observation LastModified by Organization Detai ls LastModified Time None Recorded Concern Status LastModified by Organization Details LastModified Time None Recorded Advance Directives Directive None Recorded Payers Encounter Date Sequence Insurance Name Policy Number Policy Mendoza Covered Member ID Mendoza Member ID Guarantor Name 10/30/2023 1 [employer] (POS) [id number] Fatmata Flores [id number] Fatmata Flores 11/13/2023 1 [employer] (POS) [id number] Fatmata Flores [id number] Fatmata Flores 12/02/2023 1 [employer] (POS) [id number] Fatmata Flores [id number] Fatmata Flores Notes Date Note Type Note Provider Name and Address Organization Details Recorded Time 10/30/2023 text/html patient presents with right calf pain 1 week in nature. The patient states she had just gotten out of bed was walking out of the room and down a couple of steps she felt a very sudden pop and stabbing pain in the posterior medial calf. Patient could hardly walk after that. She was having a lot of discomfort tenderness which was causing her to limp. She states she did get some swelling but never developed any significant bruising and states it really does not feel weak but if she tries to ambulate or go up and down steps or go up on her tip toes this causes significant posterior calf pain. She denies any pain or tenderness in the Achilles no ankle or knee pain. The pain had a very sudden onset has gotten slightly better over the last week but still significantly painful rates it a 5 on a scale 1-10. She has been taking some anti-inflammatories [id number] trying to elevate her leg and stay off of it. Patient comes in today for initial evaluation treatment of right calf pain with a sudden onset while walking down some steps. She states prior to this she has not had any issues with the leg she does jog for exercise and is quite active otherwise.Past medical history sheet was reviewed and signed on intake sheet of today's date drug allergies current medications family social history previous surgical history 10 point review of systems was reviewed and discussed in detail today with the patient. JEIMY Moise [address], [place], [address], [employer] [facility] [employer] 10/30/2023 12:38:26 11/13/2023 text/html Patient returns for recheck of the right calf. She had a gastrocnemius strain a couple of weeks ago when she stepped down and felt a sudden stabbing pain was unable to bear much weight. This actually occurred 1 week prior to the 1st visit which was 2 weeks ago. She felt a pop and stabbing pain in the posterior medial calf. She states over the last couple of weeks with rest and gentle stretching she has gotten quite a bit better still has some pain and difficulty with trying to do a single leg heel rise states it feels a little weak. Has some tenderness in the posterior medial calf down into the distal portion the muscle really no significant tenderness in the Achilles. She ambulates fairly comfortably describes the pain as kind of a dull ache still has a little bit of swelling but no ecchymosis no obvious defects the swelling has gotten better with time. She comes in today for recheck and to talk about return to work. 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 JEIMY Moise [address], [place], [address], [employer] 11/13/2023 12:20:10 12/02/2023 text/html patient returns for recheck of her right gastrocnemius strain. She had a injury approximately 6 weeks ago. This started when she stepped down and felt a sudden stabbing pain and was unable to bear much weight she had felt a pop at that time 2 in the posterior medial calf. She has been working on some rest compression and stretching exercises she states the last week or so she has gotten to the point now where she has no pain whatsoever. She is feeling much better has excellent strength no pain or tenderness throughout the calf or the entire leg. She is walking comfortably and states she is ready to return to work full duty. JEIMY Moise [address] [facility], [facility] [address], [place], [address], [place] [facility] [employer] [facility] 12/02/2023 12:16:03 OBGyn Episode No OBEpisode recorded.
--- OUTSIDE RECORDS SUMMARY | 2025-03-09 09:37 | XMS_ITS | Encounter Summary ---
Author Organization [facility] Team Providers Care Cabin Supervisor Name Role Phone Esau Morgan MD Primary Care Provider Agapito Douglas MD Unavailable [phone] Encounter Details Date Type Department Care Team (Latest Contact Info) Description 03/08/2025 Travel Social History Tobacco Use Types Packs/Day Years Used Date Smoking Tobacco: Former Cigarettes Q uit: 11/30/2011 Smokeless Tobacco: Never Alcohol Use Standard Drinks/Week Comments Yes 0 (1 standard drink = 0.6 oz pur e alcohol) once and awhile [facility] Utilities Answer Date Recorded In the past 12 months has [employer], gas, oil, or water company threatened [...] or relatives? Once a week 12/15/2024 Attends Sikhism Services Not on file 12/15 Active Member [...] Total Score - Questions 1-9 0 11/30 [facility] Occup[facility] ional Health - Occupational Stress [...] any time in the past 12 m [facility], were you homeless or living in a assisted (including now)? No 12/15/2024 Education Answer Date [...] on file documented as of this encounter Plan of Treatment Upcoming Encounters Date Type Department Care Team (Late st Contact Info) Description 04/20/2025 11:30 AM CDT Office Visit [facility] - [facility] [address] [place] [address] Jacqueline Saucedo APRN, SILK SNAPPER [address] [address] documented as of this encounter Visit Diagnoses Not on filedocumented in this encounter Additional Health Concerns Assessment Noted Time PHQ-9 Depression Total Score: 0 12/15/19 25 8:24 AM SILK SNAPPER documented as of this encounter Care Teams Cabin Supervisor Relationship Specialty Start Date End Date Esau Morgan MD [address] [address] PCP - General Family Medicine 07/28/23 Agapito Douglas MD [address] [place] [address] Consulting Physician Obstetrics & Gynecology 01/31/25 documented as of this encounter
--- OUTSIDE RECORDS SUMMARY | 2025-03-09 09:38 | XMS_ITS | Encounter Summary ---
Author Organization [facility] Address [address] [place] [address] Phone Care Team Providers Care Safe Deposit Clerk Name Role Phone Esau Morgan MD Primary Care Provider [phone] Agapito Douglas MD Unavailable [phone] Reason for Visit * Reason Comments Medication Refill Encounter Details Date Type Department Care Team (Late st Contact Info) Description 10/24/2023 Refill [facility] [address] [place] [address] Esau Morgan MD [address] [address] Medication Refill Social History Tobacco Use Types Packs/Day Years Used Date Smoking Tobacco: Former Cigarettes Q uit: 11/30/2011 Smokeless Tobacco: Never Alcohol Use Standard Drinks/Week Comments Yes 0 (1 standard drink = 0.6 oz pur e alcohol) once and awhile PHQ-2 Answer Date Recorded Total Score - Questions 1-9 0 10/01 Education Answer Date Recorded What is the highest level of school you have completed or the highest degree you have received? Associate degree: occupational, technical, or vocational program 07/28/2023 Sexually Active Control Partners Comments Yes I.U.D. Male Comments No Sex and Gender Information Value Date Recorded Sex Assigned at Not on file Legal Sex Female 9:43 PM CDT Gender Identity Not on file Sexual Orientation Not on file documented as of this encounter Miscellaneous Notes * Telephone Encounter - Laina Barrera RN - 10/24/2023 11:13 AM RESEARCH PROGRAM MANAGER Medication failed the protocol, provider to review and approve the medication order if appropriate. Requested Prescriptions Pending Prescriptions Disp Refills venlafaxine (EFFEXOR-XR) 75 MG CAPSULE SR 24 HR [Pharmacy Med Name: VENLAFAXINE HCL ER 75 MG CAP] 90 Capsule 0 Sig: TAKE 1 CAPSULE BY MOUTH EVERY DAY SNRI (6 Month Refill Only) Protocol Failed - 10/24/2023 7:02 AM Failed - Patient has established therapy with Serotonin-Norepinephrine Reuptake Inhibitors for at least 6 months Passed - No test in the past 12 months or most recent test was negative Passed - No active on record Passed - Visit with relevant provider in past 6 months or upcoming 90 days Recent Visits Date Type Provider Dept 10/20/23 Office Visit Esau Morgan MD [facility] 09/01/23 Office Visit Jacqueline Saucedo APRN, [facility] 07/28/23 Office Visit Esau Morgan MD [facility] Showing recent visits within past 182 days and meeting all other requirements Future Appointments No visits were found meeting these conditions. Showing future appointments within next 90 days and meeting all other requirements Passed - Has an encounter in the past 6 months with a depression or anxiety visit diagnosis ARCH PROGRAM MANAGER documented in this encounter Plan of Treatment Upcoming Encounters Date Type Department Care Team (Late st Contact Info) Description 04/20/2025 11:30 AM CDT [facility] Visit [facility] - [facility] [address] [place] [phone] Jacqueline Saucedo APRN, TELEPHONE CLEANER [address] [phone] documented as of this encounter Visit Diagnoses Not on filedocumented in this encounter Additional Health Concerns Assessment Noted Time PHQ-9 Depression Total Score: 0 10/20/20 23 1:02 PM RESEARCH PROGRAM MANAGER documented as of this encounter Care Teams Safe Deposit Clerk Relationship Specialty Start Date End Date Esau Morgan MD #[address] [address] PCP - General Family Medicine 07/28/23 Agapito Douglas MD [address] [place] [address] Consulting Physician Obstetrics & Gynecology 01/31/25 documented as of this encounter
--- OUTSIDE RECORDS SUMMARY | 2025-03-09 09:38 | XMS_ITS | Clinical Summary ---
Author Organization [facility] Physician Of [facility] [address] [place] [address] Care Team Providers Care Baccarat Dealer Name Role Phone Esau Morgan MD Primary Care Provider [phone] Allergies No known active allergies Medications citalopram (CeleXA) 10 mg tablet Take 1 tablet (10 mg total) by mouth daily Active zolpidem (AMBIEN) 5 mg tabletIndicatio ns:Sleep-Onset Insomnia Take 1 tablet (5 mg total) by mouth nightly as needed for sleep Active oxyCODONE-aceta minophen (PERCOCET) 5-325 mg per tabletIndicatio ns:Pain Take 1-2 tablets by mouth every 4 (four) hours as needed for pain. 20 tablet 10/20/2018 Active lidocaine (LIDODERM) 5 % Place 1 patch on the skin daily Remove & discard patch within 12 hours or as directed by MD. 30 patch 06/29/2023 Active methocarbamoL (ROBAXIN) 500 mg tablet Take 1 tablet (500 mg total) by mouth 2 (two) times a day 20 tablet 06/29/2023 Active ibuprofen (ADVIL,MOTRIN) 800 mg tablet Take 1 tablet (800 mg total) by mouth 3 (three) times a day 30 tablet 1 10/18/2023 Active HYDROcodone-mary taminophen (NORCO) 5-325 mg per tabletIndicatio ns:Pain Take 1-2 tablets by mouth every 4 (four) hours as needed for pain Do not exceed 8 tablets/day. 20 tablet 10/18/2023 Active Active Problems Problem Noted Date Diagnosed Date Acute appendicitis with loca lized peritonitis, without perforation, abscess, or gangrene 10/20/2018 Immunizations Immunization Administration Dates Next Due Influenza, Quadrivalent, Spl it, Preservative Free, Intramuscular 10/20/2018(Deferred: Patient Refused) Social History Tobacco Use Types Packs/Day Years Used Date Smoking Tobacco: Never Smokeless Tobacco: Never Alcohol Use Standard Drinks/Week Comments No 0 (1 standard drink = 0.6 oz pur e alcohol) Personal Safety Answer Date Recorded Have you ever been in or are you currently in a harmful physical or emotional relationship or is someone making you feel afraid or unsafe? Denies 10/18/2023 Comments No Sex and Gender Information Value Date Recorded Sex Assigned at Not on file Legal Sex Female 7:33 PM BRICKLAYER'S ASSISTANT Gender Identity Not on file Sexual Orientation Not on file Obstetrics History Last Filed Vital Signs Vital Sign Reading Time Taken Comments Blood Pressure 124/80 10/18/2024 2:25 PM BRICKLAYER'S ASSISTANT Pulse 89 10/18/2024 2:25 PM BRICKLAYER'S ASSISTANT Temperature 36.7 C (98.1 F) 10/18/2024 2:25 PM BRICKLAYER'S ASSISTANT Respiratory Rate 16 10/18/2024 2:25 PM BRICKLAYER'S ASSISTANT Oxygen Saturation 98% 10/18/2024 2:25 PM BRICKLAYER'S ASSISTANT Inhaled Oxygen Concentration - - Weight 77.1 kg (170 lb) 10/18/2024 2:25 PM BRICKLAYER'S ASSISTANT Height 157.5 cm (5' 2 ) 10/18/2024 2:25 PM BRICKLAYER'S ASSISTANT Body Mass Index 31.09 10/18/2024 2:25 PM BRICKLAYER'S ASSISTANT Plan of Treatment Health Maintenance Due Date Last Done Comments Cervical Cancer Screening 1989 Depression Screening 1989 Hepatitis C Screening 1989 DTaP/Tdap/Td Vaccine (1 - Tdap) 2000 Varicella Vaccines (1 of 2 - 13+ 2-dose series) 2002 Hepatitis B Screening 2007 Regular Well Visit/Exam 18-64 2007 Covid-19 Vaccine (3 - 2023-2 5 season) 2024 10/30/2021, 10/09/2021 Influenza Vaccine (#1) 2024 3, 10/04/2020, 09/21/2019 HPV Vaccines Aged Out No longer eligi ble based on patient's age to complete this topic Pneumococcal vaccine <65 Aged Out No longer eligible based on patient's age to complete this topic Insurance PENDING SALE TO [facility] MEDICA[facility] [place] [address] [facility] HMO Advance Directives For more information, please contact: [phone] * Full Code (Latest Code Status on File) Date Activated Date Inactivated Comments 10/19/2018 10:16 PM 10/20/2018 6:17 PM Care Teams Baccarat Dealer Relationship Specialty Start Date End Date Esau Morgan MD [address] [place] [address] PCP - General Family Medicine 10/18/23
--- OUTSIDE RECORDS SUMMARY | 2025-03-09 09:38 | XMS_ITS | Encounter Summary ---
Author Organization [facility] Address [address] [place] [address] Phone Care Team Providers Care Plane Tender Name Role Phone Lea Wiley APRN, CNP Primary Care P rovider Esau Morgan MD Primary Care Provider [phone] Agapito Douglas MD Unavailable [phone] Reason for Visit * Reason Onset Date Comments Medication Refill 07/31/2020 Encounter Details Date Type Department Care Team (Late st Contact Info) Description [facility]/31/[facility] [address] [place] [address] Lea Wiley APRN, CORPORATE WEBMASTER [address] [place] [address] Medication Refill Social History Tobacco Use Types Packs/Day Years Used Date Smoking Tobacco: Former Cigarettes Q uit: 11/30/2011 Smokeless Tobacco: Never Alcohol Use Standard Drinks/Week Comments Yes 0 (1 standard drink = 0.6 oz pur e alcohol) once and awhile Sexually Active Control Partners Comments Yes I.U.D. Male Comments No Sex and Gender Information Value Date Recorded Sex Assigned at Not on file Legal Sex Female 9:43 PM CDT Gender Identity Not on file Sexual Orientation Not on file documented as of this encounter Miscellaneous Notes * Telephone Encounter - Nilay Gilbert PAC - 08/02/2020 4:11 PM CDT Rx refill approved. * Telephone Encounter - Juana Dawn RN - 08/02/2020 3:30 PM CDT Pt calling regarding refill of citalopram,says she is out of medication but pharmacy had given her a couple to supplement. She no longer has [employer] insurance,she has [employer]. She is now and her name is Mark which is what [facility] has her under. Last OV 11/15/19. * Telephone Encounter - Hayley Chicas RN - 07/31/2020 10:07 AM CDT Received: [x]FAX []TELEPHONE CALL []MYCHART from: [x]PHARMACY []PATIENT/OTHER regarding medication management. Medication name and dose: citalopram 10mg tabs Quantity: (30 day, 90 day, 3 monthly scripts) 90 days Pharmacy preference for this medication: [facility] Subramanian Outcome: [x]Medication pended, routed to surescripts []Medication refused []Informed caller of refills at pharmacy []Additional message to medication management RN []Verbal authorization for written order to pharmacy []Additional message to provider []Verified medication with pharmacy RIA Gibson RN Nurse Triage documented in this encounter Plan of Treatment Upcoming Encounters Date Type Department Care Team (Late st Contact Info) Description 04/20/2025 11:30 AM CDT Office Visit [facility] - Family Medicine - [facility] [address] [place] [address] Jacqueline Saucedo APRN, CORPORATE WEBMASTER [address] [address] documented as of this encounter Visit Diagnoses Not on filedocumented in this encounter Additional Health Concerns Assessment Noted Time PHQ-9 Depression Total Score: 12 01/07/ 018 9:00 AM INSURANCE AND FINANCIAL SERVICES AGENT documented as of this encounter Care Teams Plane Tender Relationship Specialty Start Date End Date Lea Wiley APRN, CORPORATE WEBMASTER [address] [place] [address] PCP - General Advanced Practice Nurse 01/14/18 Esau Morgan MD #[address] [address] PCP - General Family Medicine 07/28/23 Agapito Douglas MD [address] [place] [address] Consulting Physician Obstetrics & Gynecology 01/31/25 documented as of this encounter
--- OUTSIDE RECORDS SUMMARY | 2025-03-09 09:38 | XMS_ITS | Referral Summary ---
Author Organization [facility] [address] [place] [address] Care Team Providers Care Adjunct Writing Instructor Name Role Phone Esau Morgan MD Primary Care Provider [phone] Allergies No known active allergies Medications citalopram [...] on file Legal Sex Female 7:33 PM TOOLMAKER HELPER Gender Identity Not on file Sexual Orientation Not on file Last Filed Vital Signs Vital Sign Reading Time Taken Comments Blood Pressure 124/80 10/18/2024 2:25 PM TOOLMAKER HELPER Pulse 89 10/18/2024 2:25 PM TOOLMAKER HELPER Temperature 36.7 C (98.1 F) 10/18/2024 2:25 PM TOOLMAKER HELPER Respiratory Rate 16 10/18/2024 2:25 PM TOOLMAKER HELPER Oxygen Saturation 98% 10/18/2024 2:25 PM TOOLMAKER HELPER Inhaled Oxygen Concentration - - Weight 77.1 kg (170 lb) 10/18/2024 2:25 PM TOOLMAKER HELPER Height 157.5 cm (5' 2 ) 10/18/2024 2:25 PM TOOLMAKER HELPER Body Mass Index 31.09 10/18/2024 2:25 PM TOOLMAKER HELPER Plan of Treatment Not on file Insurance [facility] MEDICA[facility] Advance Directives For more information, please contact: [phone] * Full Code (Latest Code Status on File) Date Activated Date Inactivated Comments 10/19/2018 10:16 PM 10/20/2018 6:17 PM Care Teams Adjunct Writing Instructor Relationship Specialty Start Date End Date Esau Morgan MD [address] [address] PCP - General Family Medicine 10/18/23
--- OUTSIDE RECORDS SUMMARY | 2025-03-09 09:38 | XMS_ITS | Encounter Summary ---
Author Organization [facility] Address [address] [place] [address] Phone Care Team Providers Care Digital Strategy Manager Name Role Phone Esau Morgan MD Primary Care Provider [phone] Agapito Douglas MD Unavailable [phone] Reason for Visit * Reason Comments Medication Refill Encounter Details Date Type Department Care Team (Late st Contact Info) Description 01/25/2024 Refill [facility] [address] [place] [address] Esau Morgan MD [address] [address] Medication Refill Social History Tobacco Use Types [...] encounter Miscellaneous Notes * Telephone Encounter - Janessa Alcantar RN - 01/26/2024 9:37 AM CST Medication failed the protocol, provider to review and approve the medication order if appropriate. Requested Prescriptions Pending Prescriptions Disp Refills venlafaxine (EFFEXOR-XR) 75 MG CAPSULE SR 24 HR [Pharmacy Med Name: VENLAFAXINE HCL ER 75 MG CAP] 90 Capsule 1 Sig: TAKE 1 CAPSULE BY MOUTH EVERY DAY SNRI (6 Month Refill Only) Protocol Failed - 01/25/2024 1:31 PM Failed - Patient has established therapy with Serotonin-Norepinephrine Reuptake Inhibitors for at least 6 months Passed - No test in the past 12 months or most recent test was negative Passed - No active on record Passed - Visit with relevant provider in past 6 months or upcoming 90 days Recent Visits Date Type Provider Dept 10/20/23 Office Visit Esau Morgan MD [facility] 09/01/23 Office Visit Jacqueline Saucedo APRN, [facility] 07/28/23 Office Visit Esau Morgan MD [facility] Showing recent visits within past 182 days and meeting all other requirements Future Appointments Date Type Provider Dept 02/04/24 Appointment Jacqueline Saucedo APRN, [facility] Showing future appointments within next 90 days and meeting all other requirements Passed - Has an encounter in the past 6 months with a depression or anxiety visit diagnosis L COMPLIANCE OFFICER documented in this encounter Plan of Treatment Upcoming Encounters Date Type Department Care Team (Late st Contact Info) Description 04/20/2025 11:30 AM CDT [facility] Visit [facility] - [facility] - [facility] [address] [place] [phone] Jacqueline Saucedo APRN, EMISSIONS TECHNICIAN #[address] [address] documented as of this encounter Visit Diagnoses Not on filedocumented in this encounter Additional Health Concerns Assessment Noted Time PHQ-9 Depression Total Score: 0 10/20/20 23 1:02 PM LEGAL COMPLIANCE OFFICER documented as of this encounter Care Teams Digital Strategy Manager Relationship Specialty Start Date End Date Esau Morgan MD #[address] [address] PCP - General Family Medicine 07/28/23 Agapito Douglas MD [address] [place] [address] Consulting Physician Obstetrics & Gynecology 01/31/25 documented as of this encounter
--- OUTSIDE RECORDS SUMMARY | 2025-03-09 09:38 | XMS_ITS | Clinical Summary ---
Author Organization [facility] Address [address] [place] [address] Phone Care Team Providers Care Slag Expander Name Role Phone Esau Morgan MD Primary Care Provider Agapito Douglas MD Unavailable [phone] Allergies No known active allergies Medications buPROPion (WELLBUTRIN) 150 MG XL tabletIndicatio ns:Anxiety Take 1 Tablet by mouth every morning. 90 Tablet 5 Active sertraline (Zoloft) 50 MG Tablet Take 50 mg by mouth daily. 03/06/20 25 Discontinu ed(Med List Clean Up) venlafaxine (EFFEXOR-XR) 75 MG CAPSULE SR 24 HR TAKE 1 CAPSULE BY MOUTH EVERY DAY 90 Capsule 1 4 03/06/20 25 Discontinu ed(Med List Clean Up) Active Problems Problem Noted Date Diagnosed Date Major depressive disorder 09/21/2019 Vertigo 09/21/2019 Other specified episodic mood disorder 5 Estimated Date of Delivery Comme nts Yes 11/17/2025 Encounters Date Type Department Care Team Description 03/08/2025 11:01 AM CDT - 03/08/2025 2:59 PM CDT Emergency [facility] Emergency [address] [place] [address] Michi Norman MD Bleeding in early Discharge Disposition: Discharged to home or Selfcare 03/08/2025 Travel 03/06/2025 10:00 AM CDT Office Visit [facility] [address] [place] [address] Jacqueline Saucedo APRN, [place] Anxiety (Primary Dx); First trimester Discharge Disposition: Discharged to home or Selfcare 03/06/2025 Travel 12/15/2024 9:06 AM HONING MACHINE OPERATOR SEMIAUTOMATIC - 12/15/2024 11:59 PM HONING MACHINE OPERATOR SEMIAUTOMATIC [facility] [address] [place] [address] Marita Field PAC Discharge Disposition: Discharged to home or Selfcare 12/15/2024 8:15 AM HONING MACHINE OPERATOR SEMIAUTOMATIC Office Visit [facility] [address] [place] [address] Marita Field PAC Left lower quadrant pain (Primary Dx) Discharge Disposition: Discharged to home or Selfcare 12/15/2024 Results Follow-Up [facility] [address] [place] [address] Marita Field PAC 12/15/2024 Travel from Last 3 Months Immunizations Immunization Administration Dates Next Due Influenza Vaccine, Quadrivalent, PF 10/20/2023,1 12/04/2019,09/21/2019 Family History Medical History Relation Name Comments Myopathy Brother Hypertension Father No Known Problems Maternal Grandfather No Known Problems Maternal Grandmother No Known Problems Mother Hypertension Paternal Grandfather No Known Problems Paternal Grandmother No Known Problems Sister Relation Name Status Comments Brother Alive Father Alive Maternal Grandfather Maternal Grandmother Mother Alive Paternal Grandfather Paternal Grandmother Alive Sister Alive Social History Tobacco Use Types Packs/Day Years Used Date Smoking Tobacco: Former Cigarettes Q uit: 11/30/2011 Smokeless Tobacco: Never Tobacco Cessation:Counseling Given: No Alcohol Use Standard Drinks/Week Comments Yes 0 (1 standard drink = 0.6 oz pur e alcohol) once and awhile [facility] Utilities Answer Date Recorded In the past [...] or relatives? Once a week 12/15/2024 Attends [employer] Not on file 12/15 Active Member [...] Total Score - Questions 1-9 0 11/30 [facility] Occupat ional Health - Occupational Stress [...] any time in the past 12 [facility], were you homeless or living in a care home (including now)? 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 SALES REPRESENTATIVE [address] [place] [address] Health Maintenance Due Date Last Done Comments TdaP Immunization 1989 Hepatitis B Immunization (1 of 3 - 19+ 3-dose series) 2008 HPV/Cotest 2019 Cervical Cancer Screening (CCS) 05/10/2021 Pap Smear 05/10/2021 05/10/2018 Hepatitis C Virus (HCV) Screening 07/28/2024 07/28/2023, 10/29/2020, 10/29/2020, Additional history exists SARS-COV-2 Immunization ( season) 2024 10/30/2021, 10/09/2021 Influenza Immunization (Season Ended) 2025 10/20/2023, 10/04/2020, 09/21/2019 Respiratory Syncytial Virus (RSV) Immunization (Adult) (1 - Risk 1-dose series) 09/22/2025 Meningococcal Immunization (ACWY) Aged Out No longer eligible based on patient's age to complete this topic Pneumococcal Immunization Combined Aged Out No longer eligible based on patient's age to complete this topic Rotavirus Immunization Aged Out No lo nger eligible based on patient's age to complete this topic Procedures Procedure Name Priority Date/Time Associated Diagnosis Comments US 1ST PREG UTERUS COMP TRIMESTER W/ TRANSVAG Stat with Interpretation 03/08/2025 1:04 PM CDT URINALYSIS REFLEX IF INDICATED BY ABNORMAL RESULTS STAT 03/08/2025 11:47 AM CDT GOLD TOP TUBE STAT 03/08/2025 11:46 AM CDT BLUE TOP TUBE STAT 03/08/2025 11:46 AM CDT EXTRA TUBES STAT 03/08/2025 11:46 AM CDT HCG BETA SUBUNIT SERUM QUANT STAT 03/08/2025 11:46 AM CDT CMP (COMPREHENSIVE METABOLIC PANEL) STAT 03/08/2025 11:46 AM CDT CBC WITH AUTO DIFFERENTIAL STAT 03/08/2025 11:45 AM CDT ABO & RH TYPING STAT 03/08/2025 11:45 AM CDT COMPLETE BLOOD COUNT (CBC) WITH DIFF STAT 03/08/2025 11:45 AM CDT POCT URINE HCG () STAT 03/08/2025 11:[address] ABDOMEN PELVIS W/ CONTRAST Stat with Interpretation 12/15/2024 9:45 AM HONING MACHINE OPERATOR SEMIAUTOMATIC Left lower quadrant pain UR TEST QUAL Routine 12/15/2024 9:32 AM HONING MACHINE OPERATOR SEMIAUTOMATIC URINALYSIS REFLEX IF INDICATED BY ABNORMAL RESULTS Routine 12/15/2024 9:08 AM HONING MACHINE OPERATOR SEMIAUTOMATIC Left lower quadrant pain CBC WITH AUTO DIFFERENTIAL Routine 12/15/2024 9:03 AM HONING MACHINE OPERATOR SEMIAUTOMATIC Left lower quadrant pain COMPLETE BLOOD COUNT (CBC) WITH DIFF Routine 12/15/2024 9:03 AM HONING MACHINE OPERATOR SEMIAUTOMATIC Left lower quadrant pain CMP (COMPREHENSIVE METABOLIC PANEL) Routine 12/15/2024 9:03 AM HONING MACHINE OPERATOR SEMIAUTOMATIC Left lower quadrant pain HEPATITIS C RNA QUANT PCR VIRAL LOAD Routine 07/28/2023 1:18 PM CDT Positive hepatitis C antibody test PATHOLOGY CYTOLOGY SHIM PLUG CUTTER 05/10/2018 12:00 AM CDT from Last 3 Months or Most Recently Relevant to Health Maintenance Results * US 1ST PREG UTERUS COMP [...] identified Mean sac diameter: Not applicable cm Mooar-rump length: Not applicable cm heart rate: Not [...] Hubert Orlando M.D. NATASHA: NATASHA Report ID: [id number] Reading Location: [id number] Procedure Note Vinny Orlando MD - 03/08/2025 [...] identified Mean sac diameter: Not applicable cm Mooar-rump length: Not applicable cm heart rate: Not [...] Hubert Orlando M.D. NATASHA: NATASHA Report ID: [id number] Reading Location: [place] [address] IMPRESSION: No evidence of intrauterine . Findings could be due to spontaneous , or possibly early IUP. No definite evidence of ectopic were seen but a follow-up study in 1 week is recommended. us Michi Norman MD IMG US OB Final Res ult * Urinalysis w/ Reflex (03/08/2025 11:47 AM CDT) Only the most recent of2 resultswithin the time period is included. SPECIFIC GRAVITY 1.015 1.003 - 1.030 03/08/2025 12:21 PM CDT [facility] URINE PH 8.0 5.0 - 9.0 03/08/2025 12:21 PM CDT [facility] WBC ESTERASE Negative Negative 03/08/2025 12:21 PM CDT [facility] NITRITE Negative Negative 03/08/2025 12:21 PM CDT [facility] PROTEIN, RANDOM URINE Negative Negative 03/08/2025 12:21 PM CDT [facility] URINE GLUCOSE, QUAL Negative Negative 03/08/2025 12:21 PM CDT [facility] URINE KETONES Negative Negative 03/08/2025 12:21 PM CDT [facility] UROBILINOGEN Normal Normal mg/dL 03/08/2025 12:21 PM CDT [facility] URINE BLOOD Negative Negative nay/ul 03/08/2025 12:21 PM CDT [facility] URINALYSIS COLOR Yellow 03/08/20 12:21 PM CDT [facility] URINALYSIS CLARITY Slightly Cloudy 03/08/2025 12:21 PM CDT [facility] Urine URINE SPECIMEN / Unknown Non-Phlebotomy Collection / Unknown 03/08/2025 11:47 AM CDT 03/08/2025 11:59 AM CDT us Michi Norman MD URINE ORDERABLES Final Re sult Performing Organization Address City/[facility] [address]/ZIP Co de Phone Number [facility] [address] [place] [address] * Gold Top Tube (03/08/2025 11:46 AM CDT) Blood No Phlebotomy Charged / Unknown 03/08/2025 11:46 AM CDT 03/08/2025 11:46 AM CDT us Michi Norman MD CHEMISTRY ORDERABLES [place] l Result Performing Organization Address City/[facility] [address]/[facility] Co de Phone Number [facility] [address] [place] [address] * Blue Top Tube (03/08/2025 11:46 AM CDT) Blood No Phlebotomy Charged / Unknown 03/08/2025 11:46 AM CDT 03/08/2025 11:46 AM CDT us Michi Norman MD HEMATOLOGY ORDERABLES Fin al Result Performing Organization Address City/[facility] [address]/ZIP Co de Phone Number [facility] [address] [place] [address] * (ABNORMAL) HCG Beta Quant (03/08/2025 11:46 AM CDT) HCG BETA SUBUNIT, QUANT 514.95(H) 0.00 - 5.00 mIU/mL 03/08/2025 12:10 PM CDT [facility] Blood Venipuncture / Unknown 03/08/2025 11:46 AM CDT 03/08/2025 11:46 AM CDT Narrative [facility] - 03/08/2025 12:10 PM CDT HCG [...] Norman MD CHEMISTRY ORDERABLES [place] l Result [facility] [address] [place] [address] * (ABNORMAL) CMP (03/08/2025 11:46 AM CDT) Only the most recent of2 resultswithin the time period is included. Pathologist [facility] SODIUM 141 136 - 145 mmol/L 03/08/2025 12:06 PM CDT [facility] POTASSIUM 3.7 3.5 - 5.1 mmol/L 03/08/2025 12:06 PM CDT [facility] CHLORIDE 110(H) 98 - 107 mmol/L 03/08/2025 12:06 PM [facility] CO2, VENOUS 24 22 - 30 mmol/L 03/08/2025 12:06 PM [facility] ANION GAP 10.7 <18.0 mmol/L 03/08/2025 12:06 PM [facility] GLUCOSE 93 70 - 99 mg/dL 03/08/2025 12:06 PM [facility] BUN 10 5 - 18 mg/dL 03/08/2025 12:06 PM [facility] CREATININE, BLOOD 1.16(H) 0.60 - 1.00 mg/dL 03/08/2025 12:06 PM [facility] BUN/CREATININE RATIO 9(L) 12 - 20 ratio 03/08/2025 12:06 PM [facility] TOTAL PROTEIN 7.3 6.0 - 8.0 g/dL 03/08/2025 12:06 PM [facility] ALBUMIN 4.2 3.5 - 5.0 g/dL 03/08/2025 12:06 PM [facility] A/G RATIO 1.4 1.0 - 2.2 03/08/2025 12:06 PM [facility] CALCIUM 9.3 8.7 - 10.5 mg/dL 03/08/2025 12:06 PM [facility] T BILI 0.4 0.2 - 1.2 mg/dL 03/08/2025 12:06 PM [facility] SGOT (AST) 17 <43 U/L 03/08/2025 12:06 PM [facility] SGPT (ALT) 17 <56 U/L 03/08/2025 12:06 PM [facility] ALKALINE PHOSPHATASE 57 40 - 150 U/L 03/08/2025 12:06 PM [facility] GFR, ESTIMATED >60 >=60 03/08/2025 12:06 PM [facility] Comment: Creatinine Clearance is the preferred criteria for selecting drug dose adjustments in renally impaired patients. The GFR is provided as additional pertinent clinical information. GFR is reported in mL/min/1.73 sq m. Calculation based on the Chronic Kidney Disease Epidemiology Collaboration (CKD- EPI) equation refit without adjustment for race. GFR, EST. >60 >=60 025 12:06 PM CDT [facility] GFR, EST. NONAFRICAN 53(L) >=60 03/08/2025 12:06 PM CDT [facility] Blood Venipuncture / Unknown 03/08/2025 11:46 AM CDT 03/08/2025 11:46 AM CDT us Michi Norman MD CHEMISTRY ORDERABLES [place] adams Result [facility] [address] [place] [address] * CBC with Auto Differential (03/08/2025 11:45 AM CDT) Only the most recent of2 resultswithin the time period is included. WBC 7.56 4.00 - 12.00 10(3)/mcL 03/08/2025 11:49 AM CDT [facility] RBC 4.15 3.80 - 5.30 10(6)/mcL 03/08/2025 11:49 AM CDT [facility] HEMOGLOBIN (HGB) 12.5 12.0 - 15.8 g/dL 03/08/2025 11:49 AM CDT [facility] HEMATOCRIT (HCT) 37.7 36.0 - 47.0 % 03/08/2025 11:49 AM CDT [facility] MCV 90.8 82.0 - 96.0 fL 03/08/2025 11:49 AM CDT [facility] MCH 30.1 26.0 - 34.0 pg 03/08/2025 11:49 AM CDT [facility] MCHC 33.2 31.0 - 36.0 g/dL 03/08/2025 11:49 AM CDT [facility] PLATELET COUNT 296 140 - 440 10(3)/[facility] 03/08/2025 11:49 AM CDT [facility] RDW 13.0 11.8 - 15.5 % 03/08/2025 11:49 AM CDT [facility] MPV 10.5 9.7 - 12.4 fL 03/08/2025 11:49 AM CDT [facility] NEUTROPHILS 58.9 47.0 - 73.0 % 03/08/2025 11:49 AM CDT [facility] LYMPHOCYTES 29.4 18.0 - 42.0 % 03/08/2025 11:49 AM CDT [facility] MONOCYTES 9.7 4.0 - 12.0 % 03/08/2025 11:49 AM CDT [facility] EOSINOPHILS 1.2 0.0 - 5.0 % 03/08/2025 11:49 AM CDT [facility] BASOPHILS 0.8 0.0 - 1.0 % 03/08/2025 11:49 AM CDT [facility] ABSOLUTE NEUTROPHILS 4.46 1.60 - 7.70 10(3)/mcL 03/08/2025 11:49 AM CDT [facility] ABSOLUTE LYMPHOCYTES 2.22 1.30 - 3.20 10(3)/[facility] 03/08/2025 11:49 AM CDT [facility] ABSOLUTE MONOCYTES 0.73 0.20 - 1.00 10(3)/[facility] 03/08/2025 11:49 AM CDT [facility] ABSOLUTE EOSINOPHIL 0.09 0.00 - 0.40 10(3)/[facility] 03/08/2025 11:49 AM CDT [facility] ABSOLUTE BASOPHILS 0.06 0.00 - 0.10 10(3)/[facility] 03/08/2025 11:49 AM CDT [facility] NRBC PER 100 WBC 0 03/08/20 11:49 AM CDT [facility] Blood Venipuncture / Unknown 03/08/2025 11:45 AM CDT 03/08/2025 11:45 AM CDT Michi Norman MD HEMATOLOGY ORDERABLES Fin al Result [facility] [address] [place] [address] * ABO & RH TYPING (03/08/2025 11:45 AM CDT) ABO TYPING A 03/08/2025 1:15 PM CDT [facility] BLOOD BANK RH Positive 03/08/2025 1:15 PM CDT [facility] Blood Venipuncture / Unknown 03/08/2025 11:45 AM CDT 03/08/2025 11:45 AM CDT Michi Norman MD BLOOD BANK ORDERABLES Fin al Result Performing Organization Address City/[facility] [address]/ZIP Co de Phone Number [facility]OD [facility] [address] [place] [address] * POCT Urine HCG () (03/08/2025 11:43 AM CDT) POC URINE Positive POC URINE CONTROL Cigarette Book Maker Pass Urine 03/08/2025 11:4 3 AM CDT Michi Norman MD POINT OF CARE TESTING (CO TONI) Final Result * CT ABDOMEN PELVIS W/ CONTRAST (12/15/2024 9:45 AM HONING MACHINE OPERATOR SEMIAUTOMATIC) Anatomical Region Laterality Modality Abdomen N/A Computed Tomogra phy 12/15/2024 10:1 8 AM HONING MACHINE OPERATOR SEMIAUTOMATIC Impressions 12/15/2024 10:21 AM HONING MACHINE OPERATOR SEMIAUTOMATIC IMPRESSION: No acute findings in the abdomen or pelvis. Trace free fluid in the pelvis is likely physiologic. Few scattered colonic diverticula, however there is no sign of diverticulitis. Narrative 12/15/2024 10:21 AM HONING MACHINE OPERATOR SEMIAUTOMATIC EXAM DESCRIPTION: CT ABDOMEN PELVIS W/ CONTRAST REASON FOR STUDY: Left lower abdominal pain x 2-3 days. HX of appendectomy TECHNIQUE: CT scan of the abdomen and pelvis performed with intravenous and without oral contrast using helical scanning technique with dynamic intravenous contrast injection. Reconstructed coronal and sagittal MPR images reviewed. All images stored on PACS. Automated exposure control was used as a dose optimization technique for this examination. CONTRAST TYPE/DOSE: 80mL of IOPAMIDOL 76 % IV SOLN injected via Intravenous COMPARISON: None FINDINGS: LOWER CHEST: No significant pulmonary abnormalities. No effusion. LIVER: There is focal fatty infiltration of the liver near the falciform ligament. There is a subcentimeter low-attenuation lesion in the right mercedes liver which is too small to be characterized. GALLBLADDER: No stones identified. No wall thickening or inflammatory changes. BILE DUCTS: No intrahepatic or extrahepatic ductal dilatation. SPLEEN: Normal size. No focal lesions. PANCREAS: No identified cystic or solid masses. No significant calcifications. No adjacent inflammation or peripancreatic fluid collections. Pancreatic duct not dilated. ADRENALS: Normal. KIDNEYS/URINARY TRACT: No identified significant cystic or solid masses. No visualized stones. No hydronephrosis or hydroureter. Symmetric enhancement. Urinary bladder is unremarkable. GI: Stomach is decompressed. No dilated or thick-walled loops of bowel. The appendix is not identified. There may be a few scattered colonic diverticula, however there is no sign of diverticulitis. PERITONEUM: There is trace free fluid in the pelvis. There is no pneumoperitoneum. RETROPERITONEUM: No mass or adenopathy. REPRODUCTIVE: No significant abnormality. VASCULATURE: No abdominal aortic aneurysm. MUSCULOSKELETAL: No significant abnormality. OTHER: No other abnormality. THIS IS AN ELECTRONICALLY VERIFIED FINAL REPORT 12/15/2024 10:18 AM - Electronically signed by Michael Pacheco M.D. AM: AM Report ID: [id number] Reading Location: [id number] Procedure Note Michael Pacheco MD - 12/15/2024 EXAM DESCRIPTION: CT ABDOMEN PELVIS W/ CONTRAST REASON FOR STUDY: Left lower abdominal pain x 2-3 days. HX of appendectomy TECHNIQUE: CT scan of the abdomen and pelvis performed with intravenous and without oral contrast using helical scanning technique with dynamic intravenous contrast injection. Reconstructed coronal and sagittal MPR images reviewed. All images stored on PACS. Automated exposure control was used as a dose optimization technique for this examination. CONTRAST TYPE/DOSE: 80mL of IOPAMIDOL 76 % IV SOLN injected via Intravenous COMPARISON: None FINDINGS: LOWER CHEST: No significant pulmonary abnormalities. No effusion. LIVER: There is focal fatty infiltration of the liver near the falciform ligament. There is a subcentimeter low-attenuation lesion in the right mercedes liver which is too small to be characterized. GALLBLADDER: No stones identified. No wall thickening or inflammatory changes. BILE DUCTS: No intrahepatic or extrahepatic ductal dilatation. SPLEEN: Normal size. No focal lesions. PANCREAS: No identified cystic or solid masses. No significant calcifications. No adjacent inflammation or peripancreatic fluid collections. Pancreatic duct not dilated. ADRENALS: Normal. KIDNEYS/URINARY TRACT: No identified significant cystic or solid masses. No visualized stones. No hydronephrosis or hydroureter. Symmetric enhancement. Urinary bladder is unremarkable. GI: Stomach is decompressed. No dilated or thick-walled loops of bowel. The appendix is not identified. There may be a few scattered colonic diverticula, however there is no sign of diverticulitis. PERITONEUM: There is trace free fluid in the pelvis. There is no pneumoperitoneum. RETROPERITONEUM: No mass or adenopathy. REPRODUCTIVE: No significant abnormality. VASCULATURE: No abdominal aortic aneurysm. MUSCULOSKELETAL: No significant abnormality. OTHER: No other abnormality. THIS IS AN ELECTRONICALLY VERIFIED FINAL REPORT 12/15/2024 10:18 AM - Electronically signed by Michael Pacheco M.D. AM: AM Report ID: [id number] Reading Location: [id number] IMPRESSION: No acute findings in the abdomen or pelvis. Trace free fluid in the pelvis is likely physiologic. Few scattered colonic diverticula, however there is no sign of diverticulitis. Marita Field PAC IMG CT ORDERABLES Final Result * Ur Test Qual (12/15/2024 9:32 AM HONING MACHINE OPERATOR SEMIAUTOMATIC) PREG TEST,MONOCLONA L Negative 12/15/2024 9:33 AM HONING MACHINE OPERATOR SEMIAUTOMATIC [facility] Urine Non-Phlebotomy Collection / Unknown 12/15/2024 9:32 AM HONING MACHINE OPERATOR SEMIAUTOMATIC 12/15/2024 9:32 AM HONING MACHINE OPERATOR SEMIAUTOMATIC us Kalyn Fritcher PAC URINE ORDERABLES Final R esult Performing Organization Address City/[facility] [address]/ZIP Co de Phone Number [facility] [address] [place] [address] * HEPATITIS C RNA QUANT PCR VIRAL LOAD (07/28/2023 1:18 PM CDT) HCV RNA QUANT PCR NON DETECTED NON DETECTED 07/30/2023 8:57 PM CDT [facility] HCV RNA QT LOG10 07/30/2023 8:57 PM CDT [facility] Comment: LOG 10 is not applicable. Sample held in Serology for 1 month. Call Laboratory if further testing is desired. This test was performed using SKYLAR AmpliPrep SKYLAR Taq Man Real Time PCR. Blood Venipuncture / Unknown 07/28/2023 1:18 PM CDT 07/28/2023 1:19 PM CDT Esau Morgan MD IMMUNOLOGY ORDERABLES Final R esult Performing Organization Address [facility] [address]/ZIP Co de Phone Number [facility] [address] [place] [address], * PATHOLOGY CYTOLOGY SHIM PLUG CUTTER (05/10/2018 12:00 AM CDT) 05/10/2018 us Provider Scan PATHOLOGY/CYTOLOGY ORDERABLES Fi nal Result [facility] NON-INTERFACED REFERENCE LABORATORIES from Last 3 Months or Most Recently Relevant to Health Maintenance Insurance [employer] Care Teams Slag Expander Relationship Specialty Start Date End Date Esau Morgan MD [address] [address] PCP - General Family Medicine 07/28/23 Agapito Douglas MD [address] [place] [id number] Consulting Physician Obstetrics & Gynecology 01/31/25
[2025-03-09 12:05] LABS: Beta HCG Quantitative 639.07 mIU/ML
== END 2025-03-09 09:18 | disposition home or self-care (01) ==
LOC: ANHLAB 09:20
PROVIDERS: Visit Provider Obstetrics & Gynecology
DX: N91.2 Amenorrhea, unspecified (principal)
CPT/HCPCS: 36415; 84702

== ENCOUNTER 2025-03-14 10:06 | Outpatient (CLI) | payer OTHER, SELFPAY ==
--- NOTE | ~2025-03-14 | US_ITS ---
Pelvic ultrasound. Clinical History: First trimester , establish dates and viability Technique: Realtime transabdominal and transvaginal scanning of the pelvis was performed. Color flow Doppler and Doppler spectral analysis were performed. Findings: The uterus is anteverted. Probable very early intrauterine gestational sac present. Average sac diameter of 4 mm corresponds to an estimated gestational age of 5 weeks 1 day. No visible pole at this time.. The right ovary measures 2.0 x 1.6 x 1.9 cm. No significant right ovarian or adnexal mass is seen. The left ovary measures 3.0 x 3.7 x 4.6 cm. Simple left ovarian cyst measures 3.5 cm in diameter. There is no evidence of free fluid in the cul de sac. Impression: Early intrauterine gestational sac, with estimated gestational age of 5 weeks 1 day by average sac di ameter. Consider follow-up ultrasound in 10-14 days to assess for development pole and cardiac activity, as indicated. 3.5 cm simple left ovarian cyst. Reviewed, dictated and finalized at [facility]. Impression: Early intrauterine gestational sac, with estimated gestational age of 5 weeks 1 day by average sac diameter. Consider follow-up ultrasound in 10-14 days to as sess for development pole and cardiac activity, as indicated. 3.5 cm simple left ovarian cyst.
== END 2025-03-14 10:07 | disposition home or self-care (01) ==
PROVIDERS: PCP Obstetrics & Gynecology; Visit Provider Obstetrics & Gynecology
DX: N91.2 Amenorrhea, unspecified (principal); N83.292 Other ovarian cyst, left side
CPT/HCPCS: 76801; 76817